=== PATIENT | female | born 1965 | race Caucasian/White ===

== ENCOUNTER 2019-03-21 10:10 | Day surgery (SDC) | payer MEDICARE, OTHER ==
[2019-03-21] MEDS ORDERED: PROPOFOL 200 MG INJ (11:04)
[2019-03-21] MEDS ORDERED: MIDAZOLAM 1 MG/ML 2 ML INJ ×2 (11:04)
[2019-03-21] MEDS ORDERED: PROPOFOL 40 ML (11:04)
== END 2019-03-21 15:04 | disposition home or self-care (01) ==
LOC: GIL 10:10
DX: K57.30 Diverticulosis of large intestine without perforation or abscess without bleeding (principal); K64.8 Other hemorrhoids; R19.4 Change in bowel habit; K62.5 Hemorrhage of anus and rectum
CPT/HCPCS: 45378; 84703